=== PATIENT | female | born 1950 | race Caucasian/White ===

== ENCOUNTER 2021-04-12 05:19 | Inpatient (IN) | payer MEDICARE ==
[~2021-04-12] VITALS: Ht 165.1 cm; Wt 83.9 kg
[2021-04-12] MEDS ORDERED: METHYLPREDNISOLONE SOD SUCC 125 MG/2ML VIAL IV STA (05:33)
[2021-04-12] MEDS ORDERED: SODIUM CHLORIDE 0.9% 1000ML 1,000 ML IV STA ×2 (05:33→07:21)
[2021-04-12] MEDS ORDERED: ALBUTEROL/IPRATROPIUM 3 ML NEB NEB ONE (05:45)
[2021-04-12] MEDS ORDERED: CEFTRIAXONE 1 GM in SODIUM CHLORIDE 0.9% 50ML 50 ML IV SCH (05:45)
[2021-04-12] MEDS ORDERED: CEFTRIAXONE 1 GM VIAL ONE (05:54)
[2021-04-12] MEDS ORDERED: SODIUM CHLORIDE 0.9% 50ML 50 ML ONE ×2 (05:54→20:46)
[2021-04-12] MEDS ORDERED: SODIUM CHLORIDE 0.9% 250ML 250 ML ONE (05:54)
[2021-04-12 06:19] LABS: BASOPHILS # (AUTO) 0.1 (0.0-0.1); BASOPHILS % 0.4 % (0.0-1.0); EOSINOPHILS # (AUTO) 0.1 (0.0-0.4); EOSINOPHILS % 0.3 % (0.0-6.0); HEMOGLOBIN 14.1 g/dL (12.0-16.0); LYMPHOCYTES # (AUTO) 5.5 (1.0-3.2); MEAN CORPUSCULAR HEMOGLOBIN 31.4 pg (28-32); MEAN CORPUSCULAR HGB CONC 32.8 g/dL (31-35); MEAN CORPUSCULAR VOLUME 95.8 fL (81-99); MONOCYTES # (AUTO) 1.1 (0.2-0.8); MONOCYTES % 5.4 % (4.4-11.3); NEUTROPHILS # (AUTO) 14.2 (2.1-6.9); NEUTROPHILS % 67.1 % (38.7-80.0); PLATELET COUNT 351 x10e3/uL (140-360); RED BLOOD COUNT 4.49 x10e6/uL (3.6-5.1); RED CELL DISTRIBUTION WIDTH 14.6 % (11.7-14.4)
[2021-04-12 06:36] LABS: INR 0.87
[2021-04-12 06:37] LABS: PARTIAL THROMBOPLASTIN TIME 23.2 seconds (23.8-35.5)
[2021-04-12 07:01] LABS: CREATINE KINASE MB 3.2 ng/mL (0-5.0)
[2021-04-12 07:06] LABS: ALBUMIN 3.7 g/dL (3.5-5.0); ALBUMIN/GLOBULIN RATIO 1.1 (0.8-2.0); ANION GAP 13.6 mmol/L (8-16); CALCIUM 9.1 mg/dL (8.4-10.2); CREATININE, SERUM 0.68 mg/dL (0.57-1.11); MAGNESIUM 1.8 MG/DL (1.3-2.1); POTASSIUM 3.6 mmol/L (3.5-5.1)
[2021-04-12 07:39] LABS: CLARITY,URINE CLEAR (CLEAR); COLOR,URINE YELLOW (YELLOW)
[2021-04-12 07:40] LABS: BACTERIA,URINE RARE /HPF; EPITHELIAL CELLS,URINE FEW /LPF; KETONES,URINE 1+ (NEGATIVE); LEUKOCYTE ESTERASE ,URINE NEGATIVE (NEGATIVE); NITRITE,URINE NEGATIVE (NEGATIVE); PROTEIN,URINE DIPSTICK NEGATIVE (NEGATIVE); RBC,URINE 0-5 /HPF (0-5); URINE UROBILINOGEN 0.2 mg/dL (0.2 - 1); WBC,URINE (MAN) 0-5 /HPF (0-5)
[2021-04-12] MEDS: ALBUTEROL SULF 0.083% NEB SOLN 3 ML NEB NEB SCH ×2 (08:30→11:00)
[2021-04-12] MEDS ORDERED: SODIUM CHLORIDE 0.9% 1000ML 1,000 ML IV ONE (08:30)
[2021-04-12] MEDS: IPRATROPIUM BROMIDE 0.02% 2.5 ML NEB NEB SCH ×7 (08:30→23:05)
[2021-04-12 09:03] LABS: ABG HCO3 25 mmol/L (22-26); ABG PCO2 43 mmHg (35-45); ABG PH 7.37 (7.35-7.45); ABG PO2 176 mmHg (80-105); ABG TCO2 27
[2021-04-12] MEDS ORDERED: DALIRESP500 MCG PO (12:15)
[2021-04-12] MEDS ORDERED: DULERA 200 MCG/13 GM (12:15)
[2021-04-12] MEDS ORDERED: BENAZEPRIL HCL10 MG PO (12:15)
[2021-04-12] MEDS ORDERED: OS-CAL 500+D T1 EACH PO (12:15)
[2021-04-12] MEDS ORDERED: ATORVASTATIN CA20 MG PO (12:15)
[2021-04-12] MEDS ORDERED: AMLODIPINE BESYL5 MG PO (12:15)
[2021-04-12] MEDS ORDERED: SPIRIVA18 MCG INH (12:15)
[2021-04-12] MEDS ORDERED: VENTOLIN HFA18 GM INH (12:15)
[2021-04-12] MEDS ORDERED: ALENDRONATE SOD70 MG PO (12:15)
[2021-04-12] MEDS ORDERED: ASPIRIN81 MG PO (12:15)
[2021-04-12] MEDS ORDERED: DILTIAZEM HCL 30 MG TAB PO ONE ×2 (12:30→17:00)
[2021-04-12] MEDS ORDERED: DILTIAZEM HCL 5 MG/ML 5 ML VIAL IV STA (13:05)
[2021-04-12] MEDS ORDERED: DILTIAZEM HCL VIAL 5 ML ONE (13:11)
[2021-04-12 13:59] VITALS: BP 125/73
[2021-04-12 14:15] VITALS: BP 125/73
[2021-04-12] MEDS ORDERED: EPINEPHRINE 2.25% INH NEBU SOL 0.5 ML VIAL INH STA (15:35)
[2021-04-12 16:16] VITALS: BP 132/68
[2021-04-12] MEDS ORDERED: EPINEPHRINE 2.25% INH NEBU SOL 0.5 ML VIAL ONE (16:32)
[2021-04-12 16:56] LABS: CREATINE KINASE MB 6.9 ng/mL (0-5.0)
[2021-04-12] MEDS ORDERED: ENOXAPARIN SOD INJ 40 MG/0.4 ML SYR SC SCH (17:00)
[2021-04-12 20:00] VITALS: BP 112/65
[2021-04-12] MEDS ORDERED: DILTIAZEM HCL 5 MG/ML 5 ML VIAL IV PRN (20:45)
[2021-04-12] MEDS ORDERED: IOPAMIDOL 370 MG/ML 200 ML INFUS..BTL INJ ONE (20:46)
[2021-04-12] MEDS ORDERED: ENOXAPARIN SOD INJ 40 MG/0.4 ML SYR SC STA (22:50)
[2021-04-12] MEDS: CEFEPIME 2 GM in SODIUM CHLORIDE 0.9% 100 ML IV SCH (23:21)
[2021-04-13] VITALS (8 sets, daily range): BP systolic 116–131; BP diastolic 53–81
[2021-04-13] MEDS: IPRATROPIUM BROMIDE 0.02% 2.5 ML NEB NEB SCH ×6 (02:30→21:00)
[2021-04-13] MEDS: CEFEPIME 2 GM in SODIUM CHLORIDE 0.9% 100 ML IV SCH ×3 (05:04→21:11)
[2021-04-13 06:00] LABS: BASOPHILS # (AUTO) 0.1 (0.0-0.1); BASOPHILS % 0.3 % (0.0-1.0); HEMATOCRIT 37.3 % (34.2-44.1); HEMOGLOBIN 12.3 g/dL (12.0-16.0); LYMPHOCYTES % 14.8 % (18.0-39.1); MEAN CORPUSCULAR HEMOGLOBIN 31.4 pg (28-32); MEAN CORPUSCULAR VOLUME 95.2 fL (81-99); MONOCYTES # (AUTO) 1.2 (0.2-0.8); NEUTROPHILS % 78.1 % (38.7-80.0); PLATELET COUNT 278 x10e3/uL (140-360); RED BLOOD COUNT 3.92 x10e6/uL (3.6-5.1); RED CELL DISTRIBUTION WIDTH 14.9 % (11.7-14.4)
[2021-04-13 06:18] LABS: ALBUMIN 3.1 g/dL (3.5-5.0); ALBUMIN/GLOBULIN RATIO 1.2 (0.8-2.0); ANION GAP 12.1 mmol/L (8-16); CALCIUM 8.5 mg/dL (8.4-10.2); CREATININE, SERUM 0.58 mg/dL (0.57-1.11); POTASSIUM 4.1 mmol/L (3.5-5.1)
[2021-04-13] MEDS: PREDNISONE 20 MG TAB PO SCH (09:26)
[2021-04-13] MEDS: ENOXAPARIN INJ 80 MG/0.8 ML SYR SC SCH ×2 (09:26→21:11)
[2021-04-13] MEDS ORDERED: FUROSEMIDE 40 MG TAB PO ONE (10:45)
[2021-04-13] MEDS: DILTIAZEM HCL 60 MG TAB PO SCH ×3 (11:34→21:12)
[2021-04-14] VITALS (7 sets, daily range): BP systolic 106–152; BP diastolic 64–95
[2021-04-14] MEDS: IPRATROPIUM BROMIDE 0.02% 2.5 ML NEB NEB SCH ×12 (01:10→23:18)
[2021-04-14] MEDS ORDERED: SODIUM CHLORIDE 0.9% 200 ML ONE (05:01)
[2021-04-14] MEDS ORDERED: CEFEPIME 2 GM VIAL ONE (05:07)
[2021-04-14] MEDS: CEFEPIME 2 GM in SODIUM CHLORIDE 0.9% 100 ML IV SCH ×3 (05:35→20:47)
[2021-04-14] MEDS: DILTIAZEM HCL 60 MG TAB PO SCH ×3 (05:35→20:48)
[2021-04-14 08:35] LABS: BASOPHILS % 0.2 % (0.0-1.0); EOSINOPHILS % 0.2 % (0.0-6.0); HEMATOCRIT 39.5 % (34.2-44.1); HEMOGLOBIN 12.7 g/dL (12.0-16.0); LYMPHOCYTES # (AUTO) 4.9 (1.0-3.2); LYMPHOCYTES % 26.3 % (18.0-39.1); MEAN CORPUSCULAR HEMOGLOBIN 30.5 pg (28-32); MEAN CORPUSCULAR HGB CONC 32.2 g/dL (31-35); MONOCYTES # (AUTO) 1.2 (0.2-0.8); MONOCYTES % 6.4 % (4.4-11.3); NEUTROPHILS # (AUTO) 12.5 (2.1-6.9); NEUTROPHILS % 66.4 % (38.7-80.0); PLATELET COUNT 238 x10e3/uL (140-360); RED BLOOD COUNT 4.16 x10e6/uL (3.6-5.1); RED CELL DISTRIBUTION WIDTH 14.6 % (11.7-14.4)
[2021-04-14 08:57] LABS: ALBUMIN 3.2 g/dL (3.5-5.0); ALBUMIN/GLOBULIN RATIO 1.1 (0.8-2.0); ANION GAP 11.1 mmol/L (8-16); CALCIUM 8.9 mg/dL (8.4-10.2); CHOL/HDL RATIO 2.8 (3.0-3.6); CREATININE, SERUM 0.67 mg/dL (0.57-1.11); POTASSIUM 4.1 mmol/L (3.5-5.1)
[2021-04-14 09:10] LABS: THYROID STIMULATING HORMONE 0.57 uIU/mL (0.350-4.940)
[2021-04-14] MEDS: ENOXAPARIN INJ 80 MG/0.8 ML SYR SC SCH ×2 (09:39→20:47)
[2021-04-14] MEDS: PREDNISONE 20 MG TAB PO SCH (09:39)
[2021-04-15] VITALS: BP 133/81
[2021-04-15 04:00] VITALS: BP 136/73
[2021-04-15] MEDS: CEFEPIME 2 GM in SODIUM CHLORIDE 0.9% 100 ML IV SCH ×2 (05:42→14:13)
[2021-04-15] MEDS: DILTIAZEM HCL 60 MG TAB PO SCH ×2 (05:43→14:13)
[2021-04-15 06:29] LABS: BASOPHILS % 0.2 % (0.0-1.0); EOSINOPHILS # (AUTO) 0.1 (0.0-0.4); EOSINOPHILS % 0.6 % (0.0-6.0); HEMATOCRIT 34.2 % (34.2-44.1); HEMOGLOBIN 12.2 g/dL (12.0-16.0); LYMPHOCYTES # (AUTO) 5.2 (1.0-3.2); LYMPHOCYTES % 31.2 % (18.0-39.1); MEAN CORPUSCULAR HEMOGLOBIN 34.8 pg (28-32); MEAN CORPUSCULAR HGB CONC 35.7 g/dL (31-35); MEAN CORPUSCULAR VOLUME 97.4 fL (81-99); MONOCYTES # (AUTO) 0.9 (0.2-0.8); MONOCYTES % 5.4 % (4.4-11.3); NEUTROPHILS # (AUTO) 10.3 (2.1-6.9); NEUTROPHILS % 62.1 % (38.7-80.0); PLATELET COUNT 159 x10e3/uL (140-360); RED BLOOD COUNT 3.51 x10e6/uL (3.6-5.1); RED CELL DISTRIBUTION WIDTH 16.9 % (11.7-14.4)
[2021-04-15] MEDS: IPRATROPIUM BROMIDE 0.02% 2.5 ML NEB NEB SCH ×3 (07:48→15:16)
[2021-04-15 08:17] VITALS: BP 151/87
[2021-04-15] MEDS: ENOXAPARIN INJ 80 MG/0.8 ML SYR SC SCH (08:58)
[2021-04-15] MEDS: PREDNISONE 20 MG TAB PO SCH (08:58)
[2021-04-15 10:20] VITALS: BP 151/87
[2021-04-15 11:29] VITALS: BP 147/76
[2021-04-15] MEDS ORDERED: FUROSEMIDE 40 MG TAB PO SCH (11:30)
[2021-04-15] MEDS ORDERED: LOSARTAN POTASSIUM 25 MG TAB PO SCH (11:45)
[2021-04-15] MEDS ORDERED: ELIQUIS5 MG PO (12:39)
[2021-04-15] MEDS ORDERED: ENOXAPARIN INJ 80 MG/0.8 ML SYR SC ONE (16:00)
== END 2021-04-15 17:00 | disposition home or self-care (01) | DRG 871 ==
LOC: ER 05:35 → ERHOLD 08:20 → MED/SURG3 13:15
PROVIDERS: ADMIT Internal Medicine; ATTEND Internal Medicine
DX: A41.9 Sepsis, unspecified organism (principal); J69.0 Pneumonitis due to inhalation of food and vomit; I26.99 Other pulmonary embolism without acute cor pulmonale; J96.20 Acute and chronic respiratory failure, unspecified whether with hypoxia or hypercapnia; J44.0 Chronic obstructive pulmonary disease with (acute) lower respiratory infection; J44.1 Chronic obstructive pulmonary disease with (acute) exacerbation; R65.20 Severe sepsis without septic shock; E66.9 Obesity, unspecified; I25.10 Atherosclerotic heart disease of native coronary artery without angina pectoris; I10 Essential (primary) hypertension; Z90.81 Acquired absence of spleen; Z68.30 Body mass index [BMI] 30.0-30.9, adult; Z86.711 Personal history of pulmonary embolism; Z20.822 Contact with and (suspected) exposure to COVID-19
CPT/HCPCS: 36415; 36600; 51700; 71045; 71260; 80053; 80061; 81001; 82550; 82553; 82805; 83605; 83735; 83880; 84443; 84484; 85025; 85610; 85730; 87040; 87086; 93005; 93306; 93970; 94640; 99285; J0456; J0692; J0696; J1650; J2930; J7030; J7050; J7512; Q9967; U0002

== ENCOUNTER 2021-05-10 14:51 | Inpatient (IN) | payer MEDICARE ==
[~2021-05-10] VITALS: Ht 165.1 cm; Wt 73.9 kg
[~2021-05-10 14:51] MED LIST: ALENDRONATE SOD70 MG PO; AMLODIPINE BESYL5 MG PO; ASPIRIN81 MG PO; ATORVASTATIN CA20 MG PO; BENAZEPRIL HCL10 MG PO; DALIRESP500 MCG PO; DULERA 200 MCG/13 GM; ELIQUIS5 MG PO; OS-CAL 500+D T1 EACH PO; SPIRIVA18 MCG INH; VENTOLIN HFA18 GM INH
[2021-05-10 15:31] LABS: BASOPHILS % 0.2 % (0.0-1.0); HEMATOCRIT 44.4 % (34.2-44.1); HEMOGLOBIN 14.6 g/dL (12.0-16.0); LYMPHOCYTES % 7.4 % (18.0-39.1); MEAN CORPUSCULAR HEMOGLOBIN 31.4 pg (28-32); MEAN CORPUSCULAR HGB CONC 32.9 g/dL (31-35); MEAN CORPUSCULAR VOLUME 95.5 fL (81-99); MONOCYTES # (AUTO) 0.3 (0.2-0.8); MONOCYTES % 2.3 % (4.4-11.3); NEUTROPHILS # (AUTO) 12.6 (2.1-6.9); NEUTROPHILS % 89.7 % (38.7-80.0); PLATELET COUNT 317 x10e3/uL (140-360); RED BLOOD COUNT 4.65 x10e6/uL (3.6-5.1); RED CELL DISTRIBUTION WIDTH 14.6 % (11.7-14.4)
[2021-05-10 15:35] LABS: INR 1.03; PROTHROMBIN TIME 13.9 seconds (11.9-14.5)
[2021-05-10 15:36] LABS: PARTIAL THROMBOPLASTIN TIME 26.3 seconds (23.8-35.5)
[2021-05-10 15:48] LABS: ALBUMIN 4.3 g/dL (3.5-5.0); ALBUMIN/GLOBULIN RATIO 1.3 (0.8-2.0); ANION GAP 19.4 mmol/L (8-16); CALCIUM 9.7 mg/dL (8.4-10.2); CREATININE, SERUM 0.77 mg/dL (0.57-1.11); POTASSIUM 4.4 mmol/L (3.5-5.1)
[2021-05-10] MEDS ORDERED: METHYLPREDNISOLONE SOD SUCC 125 MG/2ML VIAL IV STA (15:50)
[2021-05-10 15:54] LABS: CREATINE KINASE MB 1.6 ng/mL (0-5.0)
[2021-05-10 16:20] LABS: B-TYPE NATRIURETIC PEPTIDE2 < 10.0 pg/mL (0-100)
[2021-05-10 16:50] LABS: COLOR,URINE YELLOW (YELLOW)
[2021-05-10 16:51] LABS: CLARITY,URINE HAZY (CLEAR); KETONES,URINE TRACE (NEGATIVE); LEUKOCYTE ESTERASE ,URINE NEGATIVE (NEGATIVE); NITRITE,URINE NEGATIVE (NEGATIVE); PROTEIN,URINE DIPSTICK 2+ (NEGATIVE); URINE UROBILINOGEN 0.2 mg/dL (0.2 - 1)
[2021-05-10 17:00] LABS: AMORPHOUS SEDIMENT,URINE FEW (FEW); BACTERIA,URINE FEW /HPF; EPITHELIAL CELLS,URINE FEW /LPF
[2021-05-10] MEDS ORDERED: MEROPENEM 1 GM in SODIUM CHLORIDE 0.9% 100 ML IV ONE (17:00)
[2021-05-10] MEDS ORDERED: Vancomycin IV 1 GM in SODIUM CHLORIDE 0.9% 250ML 250 ML IV ONE (17:00)
[2021-05-10] MEDS ORDERED: ONDANSETRON HCL INJ 2MG/ML 2ML 2 MG/ML VIAL IV PRN (17:30)
[2021-05-10] MEDS ORDERED: Morphine 2mg Syringe 2 MG/ML SYR IV PRN (17:30)
[2021-05-10] MEDS: ALBUTEROL/IPRATROPIUM 3 ML NEB NEB SCH ×2 (18:10→22:00)
[2021-05-10 22:12] LABS: CREATINE KINASE MB 1.4 ng/mL (0-5.0)
[2021-05-10] MEDS: METHYLPREDNISOLONE SOD SUCC 125 MG/2ML VIAL IV SCH (22:57)
[2021-05-10 23:21] VITALS: BP 112/67
[2021-05-10 23:22] VITALS: BP 112/67
[2021-05-11] VITALS (9 sets, daily range): BP systolic 106–139; BP diastolic 56–76
[2021-05-11] MEDS: ALBUTEROL/IPRATROPIUM 3 ML NEB NEB SCH ×6 (02:50→23:40)
[2021-05-11 05:01] LABS: BASOPHILS % 0.1 % (0.0-1.0); HEMATOCRIT 38.4 % (34.2-44.1); HEMOGLOBIN 12.5 g/dL (12.0-16.0); LYMPHOCYTES # (AUTO) 1.2 (1.0-3.2); LYMPHOCYTES % 9.7 % (18.0-39.1); MEAN CORPUSCULAR HEMOGLOBIN 31.5 pg (28-32); MEAN CORPUSCULAR HGB CONC 32.6 g/dL (31-35); MEAN CORPUSCULAR VOLUME 96.7 fL (81-99); MONOCYTES # (AUTO) 0.2 (0.2-0.8); MONOCYTES % 1.6 % (4.4-11.3); NEUTROPHILS # (AUTO) 11.1 (2.1-6.9); NEUTROPHILS % 88.3 % (38.7-80.0); PLATELET COUNT 308 x10e3/uL (140-360); RED BLOOD COUNT 3.97 x10e6/uL (3.6-5.1); RED CELL DISTRIBUTION WIDTH 14.8 % (11.7-14.4)
[2021-05-11 05:36] LABS: ALBUMIN 3.3 g/dL (3.5-5.0); ALBUMIN/GLOBULIN RATIO 1.3 (0.8-2.0); ANION GAP 11.4 mmol/L (8-16); CALCIUM 8.8 mg/dL (8.4-10.2); CREATININE, SERUM 0.73 mg/dL (0.57-1.11); POTASSIUM 4.4 mmol/L (3.5-5.1)
[2021-05-11] MEDS: METHYLPREDNISOLONE SOD SUCC 125 MG/2ML VIAL IV SCH (05:37)
[2021-05-11 05:45] LABS: CREATINE KINASE MB 1.3 ng/mL (0-5.0)
[2021-05-11] MEDS: APIXABAN 5 MG TABLET PO SCH ×2 (08:22→17:19)
[2021-05-11] MEDS: OYST-CAL-D 500MG TABLET PO SCH (08:22)
[2021-05-11] MEDS: AMLODIPINE BESYLATE 5 MG TAB PO SCH (08:22)
[2021-05-11] MEDS: ATORVASTATIN 20 MG TAB PO SCH (08:22)
[2021-05-11] MEDS: BENAZEPRIL HCL 10 MG TAB PO SCH (08:23)
[2021-05-11] MEDS: TIOTROPIUM 18 MCG INH POWDER INH SCH (09:00)
[2021-05-11] MEDS ORDERED: ALBUTEROL SULFATE HFA 8GM INHALATION AEROSOL INH PRN (11:15)
[2021-05-11] MEDS ORDERED: ONDANSETRON HCL INJ 2MG/ML 2ML 2 MG/ML VIAL IV PRN (13:30)
[2021-05-11] MEDS ORDERED: ACETAMINOPHEN 325 MG TAB PO PRN (13:30)
[2021-05-11] MEDS: METHYLPREDNISOLONE SOD SUCC 40 MG/ML VIAL 1ML IV SCH (20:46)
[2021-05-11] MEDS ORDERED: SODIUM CHLORIDE 0.9% 250ML 250 ML ONE (21:03)
[2021-05-12] VITALS (7 sets, daily range): BP systolic 97–128; BP diastolic 64–75
[2021-05-12] MEDS: ALBUTEROL/IPRATROPIUM 3 ML NEB NEB SCH ×6 (03:05→23:30)
[2021-05-12 05:48] LABS: BASOPHILS % 0.1 % (0.0-1.0); HEMATOCRIT 36.6 % (34.2-44.1); LYMPHOCYTES # (AUTO) 1.2 (1.0-3.2); LYMPHOCYTES % 5.7 % (18.0-39.1); MEAN CORPUSCULAR HEMOGLOBIN 31.2 pg (28-32); MEAN CORPUSCULAR HGB CONC 32.8 g/dL (31-35); MEAN CORPUSCULAR VOLUME 95.1 fL (81-99); MONOCYTES # (AUTO) 0.8 (0.2-0.8); MONOCYTES % 3.6 % (4.4-11.3); NEUTROPHILS # (AUTO) 19.4 (2.1-6.9); NEUTROPHILS % 89.5 % (38.7-80.0); PLATELET COUNT 258 x10e3/uL (140-360); RED BLOOD COUNT 3.85 x10e6/uL (3.6-5.1); RED CELL DISTRIBUTION WIDTH 14.7 % (11.7-14.4)
[2021-05-12 06:28] LABS: ALBUMIN 3.1 g/dL (3.5-5.0); ALBUMIN/GLOBULIN RATIO 1.3 (0.8-2.0); ANION GAP 12.6 mmol/L (8-16); CALCIUM 8.6 mg/dL (8.4-10.2); CREATININE, SERUM 0.68 mg/dL (0.57-1.11); POTASSIUM 4.6 mmol/L (3.5-5.1)
[2021-05-12] MEDS: TIOTROPIUM 18 MCG INH POWDER INH SCH (08:13)
[2021-05-12] MEDS: ROFLUMILAST 500 MCG PO SCH (08:16)
[2021-05-12] MEDS: OYST-CAL-D 500MG TABLET PO SCH (08:22)
[2021-05-12] MEDS: BENAZEPRIL HCL 10 MG TAB PO SCH (08:22)
[2021-05-12] MEDS: APIXABAN 5 MG TABLET PO SCH ×2 (08:22→17:00)
[2021-05-12] MEDS: METHYLPREDNISOLONE SOD SUCC 40 MG/ML VIAL 1ML IV SCH ×2 (08:22→20:17)
[2021-05-12] MEDS: ATORVASTATIN 20 MG TAB PO SCH (08:22)
[2021-05-12] MEDS: AMLODIPINE BESYLATE 5 MG TAB PO SCH (08:22)
[2021-05-12] MEDS ORDERED: SODIUM CHLORIDE 0.9% 250ML 250 ML ONE (19:52)
[2021-05-13] VITALS: BP 137/84
[2021-05-13] MEDS: ALBUTEROL/IPRATROPIUM 3 ML NEB NEB SCH ×4 (03:00→15:10)
[2021-05-13 04:25] VITALS: BP 139/91
[2021-05-13 07:01] VITALS: BP 139/91
[2021-05-13] MEDS: METHYLPREDNISOLONE SOD SUCC 40 MG/ML VIAL 1ML IV SCH (08:16)
[2021-05-13] MEDS: APIXABAN 5 MG TABLET PO SCH (08:16)
[2021-05-13] MEDS: ATORVASTATIN 20 MG TAB PO SCH (08:17)
[2021-05-13] MEDS: OYST-CAL-D 500MG TABLET PO SCH (08:17)
[2021-05-13] MEDS: AMLODIPINE BESYLATE 5 MG TAB PO SCH (08:17)
[2021-05-13] MEDS: ROFLUMILAST 500 MCG PO SCH (08:17)
[2021-05-13 08:18] VITALS: BP 138/72
[2021-05-13] MEDS: BENAZEPRIL HCL 10 MG TAB PO SCH (08:54)
[2021-05-13] MEDS: TIOTROPIUM 18 MCG INH POWDER INH SCH (09:00)
[2021-05-13 11:35] VITALS: BP 151/99
[2021-05-13 14:41] LABS: BASOPHILS % 0.2 % (0.0-1.0); HEMATOCRIT 42.1 % (34.2-44.1); HEMOGLOBIN 13.4 g/dL (12.0-16.0); LYMPHOCYTES # (AUTO) 1.4 (1.0-3.2); LYMPHOCYTES % 7.8 % (18.0-39.1); MEAN CORPUSCULAR HEMOGLOBIN 31.5 pg (28-32); MEAN CORPUSCULAR HGB CONC 31.8 g/dL (31-35); MEAN CORPUSCULAR VOLUME 98.8 fL (81-99); MONOCYTES # (AUTO) 1.3 (0.2-0.8); MONOCYTES % 6.9 % (4.4-11.3); NEUTROPHILS # (AUTO) 15.2 (2.1-6.9); NEUTROPHILS % 84.3 % (38.7-80.0); PLATELET COUNT 220 x10e3/uL (140-360); RED BLOOD COUNT 4.26 x10e6/uL (3.6-5.1); RED CELL DISTRIBUTION WIDTH 14.9 % (11.7-14.4)
[2021-05-13] MEDS ORDERED: Albuterol/Ipratropium Nebulize NEB (14:55)
[2021-05-13] MEDS ORDERED: COMPACT COMPRE1 EACH (14:55)
[2021-05-13] MEDS ORDERED: PREDNISONE10 MG PO (14:55)
== END 2021-05-13 16:15 | disposition home or self-care (01) | DRG 190 ==
LOC: ER 15:06 → ERHOLD 17:23 → IMCU 22:41 → MED/SURG3 05-12 10:57
PROVIDERS: ADMIT Internal Medicine; ATTEND Internal Medicine
DX: J44.1 Chronic obstructive pulmonary disease with (acute) exacerbation (principal); J96.01 Acute respiratory failure with hypoxia; I10 Essential (primary) hypertension; E78.00 Pure hypercholesterolemia, unspecified; Z86.711 Personal history of pulmonary embolism; Z79.01 Long term (current) use of anticoagulants; D72.829 Elevated white blood cell count, unspecified; Z90.81 Acquired absence of spleen; Z20.822 Contact with and (suspected) exposure to COVID-19
CPT/HCPCS: 36415; 71045; 80053; 81001; 82550; 82553; 83605; 83735; 83880; 84484; 85025; 85610; 85730; 87040; 87086; 93005; 94640; 97139; 99284; J0456; J2185; J2920; J2930; J3370; J7050; U0002